=== PATIENT | female | born 1965 | race Caucasian/White ===

== ENCOUNTER 2018-11-14 12:19 | Emergency (ER) | payer MEDICAID, MEDICARE ==
[~2018-11-14] VITALS: Ht 160 cm; Wt 127.0 kg
[2018-11-14 13:48] LABS: BASOPHILS % 0.8 % (0.0-2.0); EOSINOPHILS % 1.2 % (0.0-5.0); HEMATOCRIT. 41.2 % (36.0-48.0); HEMOGLOBIN. 13.8 g/dL (12.0-16.0); LYMPHOCYTES % 33.1 % (20.0-50.0); MEAN CORPUSCULAR HEMOGLOBIN 29.9 pg (28.0-32.0); MEAN CORPUSCULAR VOLUME 89.4 fL (81.0-99.0); MEAN PLATELET VOLUME 7.6 fl (7.4-10.4); MONOCYTES % 8.5 % (2.0-8.0); NEUTROPHILS % 56.4 % (40.0-76.0); PLATELET 379 x1000/uL (130-400); RED BLOOD CELL COUNT 4.61 mill/uL (4.2-5.4); RED CELL DISTRIBUTION WIDTH 13.7 % (11.6-14.6)
[2018-11-14 13:53] LABS: CHLORIDE 106 mEq/L (98-107)
[2018-11-14 19:45] VITALS: BP 169/98
== END 2018-11-14 19:45 | disposition left against medical advice (07) ==
LOC: ER 13:18 → ENRESERV 14:56 → CANRESERV 14:56 → CANBEDREQ 15:11 → SUPCPDRO 16:49 → ER 19:45
DX: R06.03 Acute respiratory distress (principal); I10 Essential (primary) hypertension; E11.9 Type 2 diabetes mellitus without complications; R07.89 Other chest pain; E78.5 Hyperlipidemia, unspecified; Z90.710 Acquired absence of both cervix and uterus; Z98.51 Tubal ligation status; Z98.890 Other specified postprocedural states
CPT/HCPCS: 36415; 71045; 82962; 83880; 84484; 85379; 99285

== ENCOUNTER 2023-09-27 16:48 | Emergency (ER) | payer MEDICAID ==
[~2023-09-27] VITALS: Ht 157.5 cm; Wt 73.0 kg
[~2023-09-27 16:48] MED LIST: ACYC200C31 MT; BIOT10004 MT; CALC-1249 PO; CARV6.2548 MT; GABA-290 PO; GLIP10TA10 MT; GLIP10TA10 PO; LOSA100T33 MT; MAGN100T3 PO; METF-414 MT; NORT25CA PO; OMEP20CA14 PO; P20 MT; P50 MT; TRAM50TA3 MT
[2023-09-27 16:51] VITALS: O2SAT 100
[2023-09-27] MEDS: BACITRACIN ZINC OINT UDPKT TOP ONE (17:19)
[2023-09-27] MEDS: LIDOCAINE HCL/PF 1% 10 MG/ML 5ML VIAL INFIL ONE (17:20)
[2023-09-27] MEDS: TETANUS, DIPHTHERIA, PERTUSSIS VAC/PF 0.5ML (>10YR OLD) IM ONE (17:21)
[2023-09-27 17:52] VITALS: BP 137/81; PULSE 78; RESP 18; TEMP 98.7
== END 2023-09-27 18:03 | disposition home or self-care (01) ==
LOC: ER 17:16
DX: S61.211A Laceration without foreign body of left index finger without damage to nail, initial encounter (principal); E11.9 Type 2 diabetes mellitus without complications; I10 Essential (primary) hypertension; Z79.899 Other long term (current) drug therapy; Z98.51 Tubal ligation status; Z90.710 Acquired absence of both cervix and uterus; W26.0XXA Contact with knife, initial encounter; Y93.89 Activity, other specified; Y92.89 Other specified places as the place of occurrence of the external cause; Y99.8 Other external cause status
CPT/HCPCS: 90715; 12002; 90471; 99283; J3490; Z7610 ×2